=== PATIENT | female | born 1990 | race Caucasian/White ===

== ENCOUNTER 2016-11-25 03:16 | Emergency (ER) ==
[2016-11-25] MEDS ORDERED: TYLENOL PO ONE (03:40)
--- NOTE | 2016-11-25 03:46 | PROVIDER DOCUMENTATION ---
[facility] General - General Chief Complaint: Cold Symptoms Stated Complaint: 23WKS PREG/FEVER/THROWING UP Time Seen by Provider: 11/25/16 03:33 Source: patient Allergies/Adverse Reactions: Patient Allergies Allergy/AdvReac Type Severity Reaction Status Date / Time naproxen Allergy NAUSEA/VOMI Verified 11/25/16 03:29 TING Home Medications: Home Medication List Medication Instructions Recorded Confirmed Last Taken Type Amoxicillin/Pot Clavulanate 875 mg PO Q12HR #20 tablet 11/25/16 Unknown Rx [Augmentin] Vit No.78/Iron/FA 1 tab PO DAILY 11/25/16 11/25/16 Unknown History [Prenatabs FA Tablet] - History of Present Illness-[facility] General [facility] Location: reports: throat Quality of Pain: reports: aching Severity: reports: moderate Onset/Duration: reports: 5 days ago Timing: reports: still present Prearrival Treatment: Initiated over the counter meds Associated Symptoms: reports: cough, fever, sore throat Similar Symptoms Previously?: Yes Recently seen or treated by another doctor?: No - Eyes Apparent Injury?: No - Ears Ear Problem Symptoms: reports: earache - Throat/Dental Throat/Dental Problem Symptoms: reports: sore throat Recently seen a dentist or have an appointment?: No Review of Systems - Adult - REVIEW OF SYSTEMS - ADULT Constitutional: reports: fever Eyes: reports: no symptoms reported Ears, Nose, Mouth & Throat: reports: throat pain Cardiovascular: reports: no symptoms reported Respiratory: reports: cough Gastrointestinal: reports: no symptoms reported Genitourinary: reports: no symptoms reported Musculoskeletal: reports: no symptoms reported Integumentary: reports: no symptoms reported Neurological: reports: no symptoms reported Psychiatric: reports: no symptoms reported Endocrine: reports: no symptoms reported Hematologic/Lymphatic: reports: no symptoms reported Allergic/Immunologic: reports: no symptoms reported All Other Systems: Reviewed and Negative Past History - Adult - PAST MEDICAL HISTORY-ADULT Review of Records: reports: Old Records Reviewed, Nursing Assessment Review, Medications Reviewed, Social history reviewed & non-contributory. Major Childhood Illnesses: reports: denies history Cardiovascular: reports: denies history Respiratory: reports: denies history Gastrointestinal: reports: denies history Obstetrical/Gynecological: reports: denies history Genitourinary: reports: denies history Musculoskeletal: reports: denies history Neurological: reports: denies history Endocrine/Immune: reports: denies history Other Conditions: reports: denies history - PRIOR SURGERIES/PROCEDURES Surgical/Procedure History: reports: reviewed, not pertinent - PRIOR HOSPITALIZATIONS Prior Hospitalizations: reports: for other non-related - IMMUNIZATION STATUS Childhood Immunizations: See Nurse Assessment Flu Vaccine: See Nurse Assessment - FAMILY HISTORY Family History: reviewed, not pertinent - SOCIAL HISTORY Smoking: non-smoker Substance Use: none/never Alcohol Use Frequency: occasionally Living Situation: family Physical Exam- EENT - Physical Exam EENT Initial Vital Signs Reviewed: Yes General Appearance: mild distress Eye Exam: bilateral eye: normal inspection, PERRL, EOMI Ear Exam: bilateral ear: auricle normal, canal normal, TM normal Nasal Exam: discharge (clear) Throat Exam: pharynx normal Neck: non-tender, full range of motion, supple. negative: lymphadenopathy Respiratory: lungs clear, normal breath sounds Cardiovascular: normal peripheral pulses, regular rate, rhythm, no edema, no gallop Abdominal Exam: normal bowel sounds, non tender, soft Lymphatic: no adenopathy Back Exam: normal inspection, no CVA tenderness Extremity: normal range of motion, non-tender Integumentary: normal color, normal turgor, warm/dry Neurologic: grossly normal, no motor/sensory deficits Psych/Mental Status: normal mood/affect, normal thought content, normal thought process, oriented x 3 Departure - Departure Time of Disposition Order: 04:00 DIAGNOSIS: Upper respiratory infection Qualifiers: URI type: unspecified URI Qualified Code(s): J06.9 - Acute upper respiratory infection, unspecified Disposition: HOME 01 Certified Medical Emergency: Urgent Condition: Good Additional Instructions: motrin every 6 hours for fever pain NASACORT nasal spray twice a day for nasal congestion DELSYM for cough Prescriptions: Amoxicillin/Pot Clavulanate [Augmentin] 875 mg PO Q12HR #20 tablet Referrals: Ryan Leiva MD [STAFF PHYSICIAN] -
[2016-11-25 04:17] LABS: MANUAL DIFF NEEDED? NO
[2016-11-25 04:23] LABS: BASO% 0.1 % (0.0-0.8); EOS# 0.05 X1000 (0.0-0.7); EOS% 0.5 % (0.0-10.0); HEMATOCRIT 36.7 % (37.0-47.0); HEMOGLOBIN 12.3 g/dL (12.0-16.0); IMM GRAN# 0.06 X1000 (0.0-0.04); IMM GRAN% 0.6 % (0.0-0.5); LYMPH# 1.31 X1000 (1.2-3.4); LYMPH% 13.5 % (20.5-51.1); MCH 29.9 PG (27-31); MCHC 33.5 g/dL (33-37); MCV 89.3 FL (81-99); MONO# 1.01 X1000 (0.11-0.59); MONO% 10.4 % (1.7-9.3); MPV 9.3 FL (7.4-10.4); NEUT% 74.9 % (42.2-75.2); PLT 232 X1000 (130-400); RBC 4.11 XMIL (4.2-5.4)
[2016-11-25] MEDS ORDERED: AUGMENTIN PO ONE (04:46)
[2016-11-25 05:23] VITALS: BP 120/75
== END 2016-11-25 05:22 | disposition home or self-care (01) ==
LOC: P.ED 03:16
DX: O26.892 Other specified pregnancy related conditions, second trimester (principal); J06.9 Acute upper respiratory infection, unspecified; R50.9 Fever, unspecified; R05 Cough; J02.9 Acute pharyngitis, unspecified; H92.09 Otalgia, unspecified ear; O21.9 Vomiting of pregnancy, unspecified; Z3A.23 23 weeks gestation of pregnancy
CPT/HCPCS: 85025; 87081; 87430; 99283

== ENCOUNTER 2017-03-13 05:06 | Inpatient (IN) ==
--- NOTE | 2017-03-12 16:41 | HISTORY AND PHYSICAL ---
PREOPERATIVE DIAGNOSES: 1. Intrauterine at 39 weeks. 2. Gestational diabetes. 3. macrosomia. PROCEDURE: For elective primary delivery. CONDITION: Stable. HISTORY OF PRESENT ILLNESS: Ms. Griggs is a 26-year-old 3, para 0, with estimated date of delivery of 03/19/2017, who has elected to proceed with a delivery and avoid the risk of a shoulder dystocia with the above diagnoses. She has had care starting in [place]. She transferred to our office early in the first trimester. O negative blood type. Hepatitis B negative. RPR nonreactive. HIV negative. Rubella immune. PAST MEDICAL HISTORY: None. PAST SURGICAL HISTORY: None. ALLERGIES: She is allergic to Naprosyn. MEDICATIONS: Glyburide 2.5 twice a day. FAMILY HISTORY: Noncontributory. SOCIAL HISTORY: Negative. Denies alcohol or drug use. PHYSICAL EXAMINATION: VITAL SIGNS: Weight 276. Blood pressure 122/86. GENERAL APPEARANCE: She is in no acute distress. NECK: Supple. LUNGS: Clear. HEART: Regular sinus rhythm. ABDOMEN: Gravid. Cervix is 1 cm, soft. The baby is high, not engaged in the pelvis, +2 lower extremity edema. ASSESSMENT: As above. Add Rh-negative blood type. PLAN: Primary delivery. cc: Bethel Scott MD
[2017-03-13] MEDS ORDERED: KEFZOL 1 GM/D5W 1 GM/50 ML IVPB IV PRN (05:16)
[2017-03-13] MEDS ORDERED: PEPCID IV ONE (05:18)
[2017-03-13] MEDS ORDERED: SODIUM CHLORIDE 0.9% INJ ONE (05:18)
[2017-03-13] MEDS ORDERED: BICITRA PO ONE (05:18)
[2017-03-13] MEDS: LR 1,000 ML IV SCH ×2 (06:15→07:03)
[2017-03-13 06:27] LABS: MANUAL DIFF NEEDED? NO
[2017-03-13 06:41] LABS: BASO% 0.2 % (0.0-0.8); EOS# 0.09 X1000 (0.0-0.7); EOS% 1.1 % (0.0-10.0); HEMATOCRIT 40.6 % (37.0-47.0); HEMOGLOBIN 13.8 g/dL (12.0-16.0); IMM GRAN# 0.05 X1000 (0.0-0.04); IMM GRAN% 0.6 % (0.0-0.5); LYMPH# 2.26 X1000 (1.2-3.4); LYMPH% 27.5 % (20.5-51.1); MCH 30.6 PG (27-31); MONO# 0.81 X1000 (0.11-0.59); MONO% 9.9 % (1.7-9.3); NEUT% 60.7 % (42.2-75.2); PLT 193 X1000 (130-400); RBC 4.51 XMIL (4.2-5.4)
[2017-03-13] MEDS ORDERED: DURAMORPH ONE (07:18)
[2017-03-13] MEDS ORDERED: LR 0 ML ONE (07:18)
[2017-03-13] MEDS ORDERED: LR 1,000 ML ONE (07:18)
[2017-03-13] MEDS ORDERED: PITOCIN ONE (07:19)
[2017-03-13] MEDS ORDERED: ZOFRAN ONE (08:19)
[2017-03-13 08:27] LABS: URINE SOURCE VOIDED
[2017-03-13] MEDS ORDERED: DULCOLAX PR PRN (08:41)
[2017-03-13] MEDS ORDERED: BOOSTRIX VACCINE IM ONE (08:41)
[2017-03-13] MEDS ORDERED: PERCOCET-5 PO PRN (08:41)
[2017-03-13] MEDS ORDERED: M-M-R II VACCINE SUBQ ONE (08:41)
[2017-03-13] MEDS ORDERED: AMBIEN PO PRN (08:41)
[2017-03-13] MEDS ORDERED: MYLICON PO PRN (08:41)
[2017-03-13] MEDS ORDERED: HYDROXYZINE PO PRN (08:41)
[2017-03-13] MEDS ORDERED: HYDROXYZINE IM PRN (08:41)
[2017-03-13] MEDS ORDERED: PITOCIN IM PRN (08:41)
[2017-03-13] MEDS ORDERED: DEMEROL PO PRN ×2 (08:41)
[2017-03-13] MEDS ORDERED: DEMEROL IM PRN (08:41)
[2017-03-13] MEDS ORDERED: CYTOTEC PO PRN (08:41)
[2017-03-13] MEDS ORDERED: PHENERGAN IM PRN (08:41)
[2017-03-13] MEDS ORDERED: PITOCIN 20 UNITS/LR 20 UNITS/1,000 ML IV.SOLN IV ONE (08:41)
--- NOTE | 2017-03-13 08:46 | OPERATIVE NOTE ---
PROCEDURE DATE: 03/13/2017 PREOPERATIVE DIAGNOSES: 1. Intrauterine at 39 weeks. 2. Gestational diabetes, on oral hypoglycemics. 3. Rh-negative blood type. 4. Suspected macrosomia. POSTOPERATIVE DIAGNOSES: 1. Intrauterine at 39 weeks. 2. Gestational diabetes, on oral hypoglycemics. 3. Rh-negative blood type. CONDITION: Stable. PROCEDURE: Low transverse section. PHYSICIAN: Dr. Bethel Scott. DIRECTOR LIFE SALES: Erika. ANESTHESIA: Spinal with Dr. Matias. FINDINGS: Viable female infant, 8 pounds 6 ounces, 9 and 10 Apgars. ESTIMATED BLOOD LOSS: 600 mL. COMPLICATIONS: No complications. DRAINS: Bonilla catheter. Please refer to Ms. Griggs's H and P and records. She was brought to the operating room and spinal anesthesia was administered. She had a severe vasovagal reaction and once she was revived from that she had a panic attack, so with adequate anesthesia she was prepped and draped and a Pfannenstiel skin incision was made through the subcuticular tissue to the fascia which was nicked in the midline and carried out laterally. Rectus muscle dissected from underneath the rectus fascia, pulled to the side. Peritoneum entered bluntly. Bladder blade was placed. Hysterotomy incision made in lower uterine segment in the midline, then enlarged by pulling cephalad and caudad. The delivered occiput anterior without difficulty. Cord doubly clamped and cut. Care of infant taken over by nursery personnel. Cord blood obtained. 3-vessel cord. Uterus massaged to deliver the placenta. Uterus exteriorized, wiped free of clots and main placental tissue. Hysterotomy incision closed with 1 chromic running locking. Good hemostasis. The fundus, tubes, and ovaries normal. Uterus put back into the abdomen. Irrigation done. Bladder allowed to fall into place. Peritoneum closed with 0 chromic. Muscle plicated in the midline with interrupted stitch of 0 chromic. The fascia closed with 0 Vicryl running nonlocking. Maurilio's fascia closed with 0 chromic. The skin closed with 4-0 Biosyn. All counts were correct. Expect routine . cc: Bethel Scott MD
[2017-03-13 08:50] LABS: BILIRUBIN URINE NEGATIVE (NEGATIVE); BLOOD URINE NEGATIVE (NEGATIVE); CLARITY CLEAR (CLEAR); COLOR YELLOW; GLUCOSE URINE NEGATIVE (NEGATIVE); LEUKOCYTES URINE 1+ (NEGATIVE); NITRITE URINE NEGATIVE (NEGATIVE); PH URINE 6.5; PROTEIN URINE TRACE mg/dL (NEGATIVE); SP GRAVITY URINE 1.015; UROBILINOGEN URINE NORMAL
[2017-03-13] MEDS ORDERED: BENADRYL IV PRN (09:25)
[2017-03-13] MEDS ORDERED: ZOFRAN ODT PO PRN (09:25)
[2017-03-13] MEDS ORDERED: ZOFRAN IV PRN ×2 (09:25)
[2017-03-13] MEDS ORDERED: NARCAN INJ PRN (09:25)
[2017-03-13] MEDS ORDERED: OFIRMEV 1000 MG/ISOTONIC SOLN 1,000 MG/100 ML BOTTLE IV PRN (09:26)
[2017-03-13] MEDS ORDERED: MORPHINE IV PRN (09:26)
[2017-03-13] MEDS: MYLICON PO SCH (15:33)
[2017-03-13] MEDS: PRECARE PO SCH (15:34)
[2017-03-13] MEDS: PITOCIN 10 UNITS/LR 10 UNIT/1,000 ML IV.SOLN IV SCH ×2 (16:28→23:57)
[2017-03-13] MEDS: PERCOCET-10 PO PRN (17:01)
[2017-03-14] MEDS: MYLICON PO SCH ×5 (01:47→20:22)
[2017-03-14] MEDS: DIABETA PO SCH ×3 (01:47→17:26)
[2017-03-14] MEDS: PERICOLACE PO SCH ×2 (01:48→20:22)
[2017-03-14] MEDS: PERCOCET-10 PO PRN ×4 (04:06→20:22)
[2017-03-14 06:35] LABS: MANUAL DIFF NEEDED? NO
[2017-03-14 06:47] LABS: BASO% 0.2 % (0.0-0.8); EOS# 0.01 X1000 (0.0-0.7); EOS% 0.1 % (0.0-10.0); HEMOGLOBIN 12.6 g/dL (12.0-16.0); IMM GRAN# 0.05 X1000 (0.0-0.04); IMM GRAN% 0.4 % (0.0-0.5); LYMPH# 1.49 X1000 (1.2-3.4); LYMPH% 11.2 % (20.5-51.1); MCH 30.5 PG (27-31); MCHC 33.2 g/dL (33-37); MONO# 0.96 X1000 (0.11-0.59); MONO% 7.2 % (1.7-9.3); MPV 11.9 FL (7.4-10.4); NEUT% 80.9 % (42.2-75.2); PLT 160 X1000 (130-400); RBC 4.13 XMIL (4.2-5.4)
[2017-03-14] MEDS: PRECARE PO SCH (08:30)
[2017-03-14] MEDS: MOTRIN PO PRN ×2 (08:30→20:21)
[2017-03-14] MEDS: NEOSPORIN OINTMENT PACKET TOP PRN ×2 (14:48→20:39)
[2017-03-15] MEDS: PERCOCET-10 PO PRN ×4 (00:21→23:07)
[2017-03-15] MEDS: PRECARE PO SCH (08:43)
[2017-03-15] MEDS: DIABETA PO SCH ×2 (08:44→17:41)
[2017-03-15] MEDS: MYLICON PO SCH ×4 (08:44→21:01)
[2017-03-15] MEDS: NEOSPORIN OINTMENT PACKET TOP PRN (08:48)
[2017-03-15] MEDS: MOTRIN PO PRN ×2 (08:48→16:51)
[2017-03-15] MEDS: PERICOLACE PO SCH (21:01)
[2017-03-16] MEDS: PERCOCET-10 PO PRN ×3 (03:29→14:20)
[2017-03-16] MEDS: MOTRIN PO PRN (03:29)
[2017-03-16] MEDS: LR 1,000 ML IV SCH ×2 (07:22→08:54)
[2017-03-16] MEDS: MYLICON PO SCH ×3 (07:23→14:20)
[2017-03-16] MEDS: DIABETA PO SCH (09:22)
[2017-03-16] MEDS: PRECARE PO SCH (09:23)
[2017-03-16] MEDS: NEOSPORIN OINTMENT PACKET TOP PRN (09:23)
[2017-03-16 10:37] VITALS: BP 133/89
--- NOTE | 2017-03-17 03:46 | DISCHARGE SUMMARY ---
ADMISSION DATE: 03/13/2017 DISCHARGE DATE: 03/16/2017 ADMITTING DIAGNOSES: 1. A 39 week . 2. Gestational diabetes. 3. macrosomia. PRINCIPAL DIAGNOSES: 1. A 39 week . 2. Gestational diabetes. 3. macrosomia. PRINCIPAL PROCEDURES: Elective primary section. DELIVERY SUMMARY: Hanny Griggs is a 26-year-old, 3, para 0-0-2-0, at 39 weeks gestation. She has had care first in [place] and then later in our office. She was a gestational diabetic on glyburide. Due to concerns of macrosomia, the patient was admitted to the hospital on 03/13/2017 and underwent a primary low transverse by Dr. Scott. She delivered an 8 pound 6 ounce female with Apgars of 9 at one minute and 10 at five minutes. There were no intraoperative complications. Following delivery, the patient did well. She remained afebrile and all vital signs were stable. Her admission hemoglobin and hematocrit were 13.8 and 40.6 with discharge hemoglobin and hematocrit being 12.6 and 38. Her RhoGAM evaluation showed the to be Rh positive. She did receive RhoGAM after delivery. DiaBeta was not restarted and her blood sugars have been in the acceptable range. Today, cardiac and pulmonary examinations were normal. Bowel and bladder function was normal. Incision was clean and dry. She is having scant vaginal bleeding. Ms. Griggs will be discharged today. We will see her back in the office at the end of the week. Routine discharge instructions, activity limitations, and precautions were discussed. She will continue vitamins. She was given prescriptions for Percocet 10, #30, and ibuprofen for postoperative pain. cc: MD Bethel Benitez MD
== END 2017-03-16 15:10 | disposition home or self-care (01) ==
LOC: P.LD 05:06
PROVIDERS: ADMIT Obstetrics & Gynecology; ATTEND Obstetrics & Gynecology